=== PATIENT | male | born 1975 | race Caucasian/White ===

== ENCOUNTER 2019-11-15 09:39 | Emergency (ER) | payer OTHER, SELFPAY ==
[2019-11-15 09:51] VITALS: BP 160/90; PULSE 76; RESP 13; TEMP 36.2; O2SAT 99
--- NOTE | 2019-11-15 09:55 | PC.NURSE ---
Patient wears glasses for distance reading. His glasses are out in the car, so we did the test without them.
[2019-11-15] MEDS: PROPARACAINE 0.5% OPHTH SOL 1 DROPS EYE-LEFT (10:11)
[2019-11-15] MEDS: FLUORESCEIN 1 MG STRIP EYE-BOTH (10:18)
--- NOTE | 2019-11-15 10:37 | ED_ITS ---
HPI - Skin/Abscess/Foreign Bdy General Chief complaint: Skin/Abscess/Foreign Body Stated complaint: LEFT EYE ISSUE Time Seen by Provider: 11/15/19 09:53 Source: patient Mode of arrival: Ambulatory Limitations: no limitations History of Present Illness HPI narrative: The patient is a 44-year-old male who presents with left eye rash. He says it has been there for about a week he was started on Augmentin per his PCP 5 days ago. It has actually improved but he was sent here for further evaluation. He says it is now itching a little bit. He has no visual changes. complaint: rash Related Data Allergies Allergy/AdvReac Type Severity Reaction Status Date / Time No Known Drug Allergies Allergy Verified 11/15/19 10:11 Review of Systems Review of Systems Narrative: GENERAL: Denies chills,fever HEENT: See HPI RESPIRATORY: Denies dyspnea, cough, wheezing CARDIOVASCULAR: Denies chest pain, palpitations GASTROINTESTINAL: Denies nausea, vomiting MUSCULOSKELETAL: Denies extremity pain, injury SKIN: No rash, no laceration, no pruritus NEUROLOGIC: Denies weakness, dizziness, headache, numbness 8 point review of systems is negative except for those stated above and HPI Patient History Social History Smoking Status: Current every day smoker Smoking Status: Current every day smoker Substance Use Type: does not use Exam Initial Vital Signs Initial Vital Signs: Vital Signs Temperature 97.2 F L 11/15/19 09:51 Pulse Rate 76 11/15/19 09:51 Respiratory Rate 13 11/15/19 09:51 Blood Pressure 160/90 H 11/15/19 09:51 Pulse Oximetry 99 11/15/19 09:51 GENERAL: Well-appearing, well-nourished and in no acute distress. HEENT: Head atraumatic,EOMI, pupils reactive Left eye was treated with proparacaine, stained with fluorescein. No dye uptake. No foreign body. CARDIOVASCULAR: Regular rate and rhythm without murmurs, rubs or gallops. RESPIRATORY: Breath sounds equal bilaterally, no wheezes rales or rhonchi. EXTREMITIES: Normal range of motion, no clubbing or edema. Neurovascularly intact NEUROLOGICAL: Alert and oriented x4. SKIN: Left eye all small scabbed area as periorbital E mostly laterally and inferiorly does not appear to involve the eye itself. They are not vesicles. no significant swelling or erythema Course Orders Ordered: Discontinued Medications Fluorescein Sodium (Ful-Gabriella) 1 mg EYE-BOTH NOW ONE Stop: 11/15/19 10:07 Last Admin: 11/15/19 10:18 Dose: 1 mg Documented by: BARRIE Proparacaine HCl (Parcaine 0.5% Ophth Allyson) 1 drops EYE-LEFT NOW ONE Stop: 11/15/19 10:07 Last Admin: 11/15/19 10:11 Dose: 1 drop Documented by: BARIRE Vital Signs Vital signs: Vital Signs - 8 hr 11/15/19 09:51 11/15/19 10:48 Temperature 97.2 F L Pulse Rate 76 72 Respiratory Rate 13 14 Blood Pressure 160/90 H 152/81 H Pulse Oximetry 99 98 MDM - Skin/Abscess/Foreign Bdy MDM Narrative Medical decision making narrative: Patient does not have any pain infected is. Retic pictures on his phone over the past few days it actually seems to be much improved. It was previously erythematous and swollen inferior the periorbital area. He now has just a small few areas of erythema and it is not vesicular like I do not believe it to be shingles. It is not painful. At this time I recommend he finish his Augmentin prescription and follow-up with PCP Discharge Plan Departure Patient Disposition: Home Clinical Impression: Cellulitis Qualifiers: Site of cellulitis: periorbital Laterality: left Qualified Code(s): L03.213 - Periorbital cellulitis Discharge Date/Time: 11/15/19 10:48 Instructions: DI for Cellulitis -- Adult Activity Restrictions/Additional Instructions: *You have been diagnosed with cellulitis left eye *What to do: At this time compared to the picture she showed me I believe this to be healing. Keep face clean and dry with soap and water *Continue to take medications as directed Finish Augmentin as prescribed until gone Antibiotic ointment 1 to 2 times a day over the area For itching may try Benadryl 25 mg every 6 hours only if needed *Follow up with your primary care provider in 2-3 days *Return to ER if you should have increasing redness, swollen eye, visual changes or any new, worsening or concerning symptoms Referrals: [facility] [Provider Group]
[2019-11-15 10:48] VITALS: BP 152/81; PULSE 72; RESP 14; O2SAT 98
== END 2019-11-15 10:48 | disposition home or self-care (01) ==
PROVIDERS: Emergency Provider Emergency Medicine
DX: L03.213 Periorbital cellulitis (principal)
CPT/HCPCS: 99282

== ENCOUNTER → 2021-07-12 13:48 | Outpatient (CLI) | payer OTHER, SELFPAY ==
--- NOTE | 2021-07-12 | DI.MRI.S_ITS ---
PROCEDURE: MR BRAIN (IAC) WWO CON INDICATIONS: Unspecified sensorineural hearing loss TECHNIQUE: Noncontrast sagittal T1 spin echo, axial FLAIR, axial gradient echo, axial diffusion and ADC through the brain. Axial thin-slice 3D CISS, coronal TruFISP, axial T1 spin echo with fat saturation through the internal auditory canals. After the administration of contrast, thin slice axial and coronal T1 spin echo with fat saturation through the internal auditory canals, and axial T1 spin echo with fat saturation through the brain. COMPARISON: None. FINDINGS: Image quality: Excellent. Cranial nerves: No cerebellopontine angle masses. Visualized cranial nerves demonstrate no areas of abnormal signal, mass lesion or enhancement. There is incidental note of vascular structure, appearing likely PICA, coursing the origins of the right 7th and 8th nerve. CSF spaces: Ventricles are normal in size and shape. No extra-axial fluid collections. Basal cisterns are patent. Brain: No intracranial bleeds or mass effects. Conde-white matter interface is intact. No abnormal intracranial enhancement. Diffusion weighted images demonstrate no acute ischemic insults. Brainstem appears normal. Normal intravascular flow voids are present. Skull and face: Calvarial marrow signal is normal. Orbits appear normal. Sinuses: Sinuses demonstrate pansinus mucosal thickening. IMPRESSION: 1. No areas of abnormal signal, mass lesion or enhancement are present within the cerebellopontine angles or visualized cranial nerves. 2. 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 Recommend clinical correlation. 3. Pansinus mucosal thickening. Dictated by: Verena Marrero M.D. on 07/12/2021 at 15:41 Approved by: Verena Marrero M.D. on 07/12/2021 at 15:45
== END ==
PROVIDERS: Referring Provider Otolaryngology; Visit Provider Otolaryngology
DX: H90.5 Unspecified sensorineural hearing loss (principal); H93.12 Tinnitus, left ear
CPT/HCPCS: 70553